=== PATIENT | female | born 2000 | race Caucasian/White ===

== ENCOUNTER 2024-09-18 18:58 | Emergency (ER) | payer SELFPAY ==
--- OUTSIDE RECORDS SUMMARY | 2023-09-06 07:15 | XMS_ITS ---
Author Organization [facility] vices Address [address] [place], [place] [id number] Care Team Providers Care Mortgage Broker Name Role Phone Roslyn Perez Primary Care Provider Nelida Arnold Unavailable [phone] REASON FOR VISIT possible strep throat Medications Medication SIG (Take, Route, Fr equency, Duration) Notes Start Date End Date Status Fluconazole 150 MG 1 tablet Orally once for 1 days 08/17/2023 Active traZODone HCl 150 MG 1 tablet at bedtime as needed Orally Once a day for 30 days Dose increase 06/18/23. 07/22/2022 Active Social History Sex Assigned At : Social History Observation Description Sex Assigned At Female Encounters Encounter Location Date Provider Diagnosis Main [address] [place], [place] [id number] 09/06/2023 Nelida Arnold Plan Of Treatment No Information Progress Notes * Jahaira MORILLO RDOB: 0 (23 yo F)Acc No.[id number]:09/06/2023 Medical Note Patient: Estuardo Jahaira SAEZ Provider: Montrell Mackey, MSN, CADDY/CADDIE SUPERVISOR, CINEMA OR THEATRE MANAGER-C :2000 A ge:22 Y S ex:Female Date:09/06/2023 [id number] Pcp:Roslyn Perez Subjective: * Chief Complaints: * 1 . Possible strep throat. * Medical History: * Medications: T aking Fluconazole 150 MG Tablet 1 tablet Orally once , Taking traZODone HCl 150 MG Tablet 1 tablet at bedtime as needed Orally Once a day Dose increase 06/18/23. Objective: * Vitals: Assessment: Plan: * Treatment: * Billing Information: * Visit Code: * Procedure Codes: * Electronic signature of KANWAL Saravia on 09/18/2024 at 04:49 PM EDT Sign off status: Pending * Provider: Montrell Mackey, MSN, CADDY/CADDIE SUPERVISOR, GENC Date: 09/06/2023 Generated for Printing/Faxing/eTransmitting on: 09/18/2024 04:49 PM EDT
--- OUTSIDE RECORDS SUMMARY | 2024-09-18 17:59 | XMS_ITS | Encounter Summary ---
Author Organization [facility] tem Address [id number] [address] [place] [address] Care Team Providers Care Bistro Server Name Role Phone Services, [facility] Primary Care Provider Reason for Visit * Reason Comments Medical Problem Encounter Details Date Type Department Care Team (Late st Contact Info) Description 09/18/2024 5:59 PM EDT - 09/18/2024 6:05 PM EDT Emergency [facility] -Emergency Department [address] [facility] [place] [address] Discharge Disposition: Left Without Treatment Social History Tobacco Use Types Packs/Day Years Used Date Smoking Tobacco: Passive Smo ke Exposure - Never Smoker Smokeless Tobacco: Never Alcohol Use Standard Drinks/Week Comments Yes 0 (1 standard drink = 0.6 oz pur e alcohol) Childcare Answer Date Recorded Childcare Unknown 09/07/2018 Employment Answer Date Recorded Employment Unknown 09/07/2018 Hunger Screening Answer Date Recorded Within the past 12 months we worried whether our food would run out before we got money to buy more. Never True 09/18/2024 Within the past 12 months th e food we bought just didn't last and we didn't have money to get more. Never True 09/18/2024 Comments No Sex and Gender Information Value Date Recorded Sex Assigned at Not on file Legal Sex Female 11:57 AM EDT Gender Identity Not on file Sexual Orientation Not on file documented as of this encounter Last Filed Vital Signs Vital Sign Reading Time Taken Comments Blood Pressure 135/80 09/18/2024 4:57 PM EDT Pulse 65 09/18/2024 4:57 PM EDT Temperature 36.7 C (98 F) 09/18/2024 4:57 PM EDT Respiratory Rate 18 09/18/2024 4:57 PM EDT Oxygen Saturation 100% 09/18/2024 4:57 PM EDT Inhaled Oxygen Concentration - - Weight - - Height - - Body Mass Index - - documented in this encounter ED Notes * Zoraida Doll RN - 09/18/2024 6:02 PM EDT When brought back to room pt had multiple complaints and was worried about mold in her house and was feeling bad, I explained we could test her blood and check some basic profile and CBC but we do not have a specific test for mold, pt got mad and I again said we would be more happy to see you and check you out and test your blood. But pt left ER * Xiao Jensen RN - 09/18/2024 4:58 PM EDT Pt presents with various complaints to include: head fog, myalgias, and intermittent swelling to lower lip documented in this encounter Plan of Treatment Scheduled Orders Name Type Priority Associated Diagnoses Order Schedule CBC auto differential Lab STAT Onc e for 1 Occurrences starting 09/18/2024 until 09/18/2024 Comprehensive metabolic panel Lab STAT Once for 1 Occurrences starting 09/18/2024 until 09/18/2024 POCT Nursing Urine Macroscopic UA Point of Care Testing STAT Once for 1 Occurrences starting 09/18/2024 until 09/18/2024 Extra Urine Lab STAT Once for 1 Occurrences starting 09/18/2024 until 09/18/2024 Extra Urine Culture Lab STAT Once for 1 Occurrences starting 09/18/2024 until 09/18/2024 POCT , urine Point of Care Testing STAT Once for 1 Occurrences starting 09/18/2024 until 09/18/2024 Felch draw Lab STAT Once for 1 Occurrences starting 09/18/2024 until 09/18/2024 Light Blue Top Lab Panel STAT Once for 1 Occurrences starting 09/18/2024 until 09/18/2024 SARS/FLU A+B/RSV by NAAT/Molecular (M4RT Collection Tube) Microbiology STAT STAT for 1 Occurrences starting 09/18/2024 until 09/18/2024 documented as of this encounter Visit Diagnoses Not on filedocumented in this encounter Additional Health Concerns Infection Onset Date Last Indicated Resolved Time Respiratory Rule-Out 09/18/2024 09/18/2024 documented as of this encounter Care Teams Bistro Server Relationship Specialty Start Date End Date Services, [facility] [address] [place], [place] PCP - General Family Medicine 04/17/22 documented as of this encounter
--- OUTSIDE RECORDS SUMMARY | 2024-09-18 19:06 | XMS_ITS | Encounter Summary ---
Author Organization [employer] [facility] tem Address [id number] [address] [place] [address] Care Team Providers Care Job Placement Specialist Name Role Phone Services, [facility] Primary Care Provider Encounter Details Date Type Department Care Team (Latest Contact Info) Description 09/18/2024 Travel Social History Tobacco Use Types Packs/Day Years [...] on file documented as of this encounter Plan of Treatment Not on file documented as of this encounter Visit Diagnoses Not on filedocumented in this encounter Additional Health Concerns Infection Onset Date Last Indicated Resolved Time Respiratory Rule-Out 09/18/2024 09/18/2024 documented as of this encounter Care Teams Job Placement Specialist Relationship Specialty Start Date End Date Services, [facility] [address] [place] PCP - General Family Medicine 04/17/22 documented as of this encounter
[2024-09-18 19:21] VITALS: BP 117/81; PULSE 77; TEMP 36.7; O2SAT 100; BMI 43.5
== END 2024-09-18 19:55 | disposition left against medical advice (07) ==
PROVIDERS: Emergency Provider Internal Medicine
DX: Z53.21 Procedure and treatment not carried out due to patient leaving prior to being seen by health care provider (principal)
CPT/HCPCS: 81001; 84703; 87804; 87811